=== PATIENT | female | born 1995 | race Caucasian/White ===

== ENCOUNTER 2021-05-09 13:24 | Emergency (ER) | payer MEDICAID ==
[2021-05-09] MEDS ORDERED: DEXAMETHASONE 10 MG/ML VIAL PO STA (13:43)
[2021-05-09] MEDS ORDERED: CHERRY SYRUP 10 ML UDC PO ONE (13:43)
[2021-05-09] MEDS ORDERED: IPRATROPIUM/ALBUTEROL 3 ML NEB INH STA (13:43)
--- NOTE | 2021-05-09 13:45 | ED Physician Documentation ---
PD HPI DYSPNEA - Stated complaint Stated Complaint: ASTHMA,SOA - Chief complaint Chief Complaint: Resp - History obtained from History obtained from: Patient, Family - History of Present Illness Timing - onset: How many days ago (2) Timing - onset during: Rest Timing - duration: Days (2) Timing - details: Gradual onset, Still present Inciting event(s): Out of meds, URI Improved by: Inhaler/neb Worsened by: Exertion, Coughing Associated symptoms: Cough, Wheezing. No: Fever Similar symptoms before: Diagnosis (asthma) Recently seen: Not recently seen - Additional information Additional information: 25-year-old autistic female has developed a cough and congestion with shortness of breath. She has a history of asthma and she has been having issues with shortness of breath for about 2 days. She is run out of her inhaler. She has not had to use her inhaler for quite some time. She did get her first Covid shot 1 week ago due to get her second on holding. She stays mostly at home her parents are immunized. Review of Systems Constitutional: denies: Fever Eyes: denies: Decreased vision Ears: denies: Ear pain Nose: reports: Rhinorrhea / runny nose, Congestion Throat: denies: Sore throat Cardiac: denies: Chest pain / pressure, Palpitations, Pedal edema, Calf pain Respiratory: reports: Dyspnea, Cough, Wheezing GI: denies: Abdominal Pain, Nausea, Vomiting, Constipation, Diarrhea : denies: Dysuria, Frequency PD PAST MEDICAL HISTORY - Present Medications Home Medications: Ambulatory Orders Medication Instructions Recorded Confirmed Albuterol Sulf [Ventolin Hfa 1 - 2 puffs INH Q4HR PRN #1 inhaler 05/09/21 Inhaler] Albuterol Sulfate [Proair Hfa 1 - 2 puffs INH Q4H PRN 05/09/21 05/09/21 Inhaler] Amox/Clav 875/125 [Augmentin] 1 each PO Q12H #20 tablet 05/09/21 predniSONE [Deltasone] 40 mg PO DAILY 5 Days #10 tablet 05/09/21 - Allergies Allergies/Adverse Reactions: Allergies Allergy/AdvReac Type Severity Reaction Status Date / Time No Known Drug Allergies Allergy Verified 05/09/21 13:27 PD ED PE NORMAL - Vitals Vital signs reviewed: Yes (Hypertensive) - General General: Well developed/nourished, Other (Tachypneic at rest with audible wheeze) - HEENT HEENT: Atraumatic, PERRL, EOMI, Other (Right TM is erythematous with no recognizable landmarks there does appear to be pus in the canal. 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, No motor deficit, No sensory deficit, Normal speech Eye Opening: Spontaneous Motor: Obeys Commands Verbal: Oriented GCS Score: 15 - Psych Psych: Normal mood, Normal affect Results - Vitals Vitals: Vital Signs - 24 hr 05/09/21 05/09/21 05/09/21 13:28 13:38 13:47 Temperature 36.3 C L Heart Rate 86 93 85 Respiratory 22 18 16 Rate Blood Pressure 147/89 H 144/89 H O2 Saturation 93 94 05/09/21 05/09/21 05/09/21 14:02 14:04 15:04 Temperature 36.6 C Heart Rate 96 94 95 Respiratory 14 16 18 Rate Blood Pressure 147/90 H 114/92 H O2 Saturation 100 96 Oxygen O2 Source Room air - Labs Labs: Laboratory Tests 05/09/21 14:04 Nasal Adenovirus (PCR) NOT DETECTED Nasal B. parapertussis DNA (PCR) NOT DETECTED Nasal Coronavir 229E PCR NOT DETECTED Nasal Coronavir HKU1 PCR NOT DETECTED Nasal Coronavir NL63 PCR NOT DETECTED Nasal Coronavir OC43 PCR NOT DETECTED Nasal Enterovir/Rhinovir PCR NOT DETECTED Nasal Influenza B PCR NOT DETECTED Nasal Influenza A PCR NOT DETECTED Nasal Parainfluen 1 PCR NOT DETECTED Nasal Parainfluen 2 PCR NOT DETECTED Nasal Parainfluen 3 PCR NOT DETECTED Nasal Parainfluen 4 PCR NOT DETECTED Nasal RSV (PCR) NOT DETECTED Nasal B.pertussis DNA PCR NOT DETECTED Nasal C.pneumoniae (PCR) NOT DETECTED Rajeev Human Metapneumo PCR NOT DETECTED Nasal M.pneumoniae (PCR) NOT DETECTED Nasal SARS-CoV-2 (PCR) NOT DETECTED - Rads (name of study) chest Radiology: Prelim report reviewed (Impression: No acute cardiopulmonary abnormality), EMP read indepedently, See rad report PD MEDICAL DECISION MAKING - ED course Complexity details: reviewed old records, reviewed results, re-evaluated patient, considered differential, d/w patient, d/w family ED course: 25-year-old autistic female presents to the emergency department with wheezing having run out of her inhaler. On examination she does have otitis on the right side. She has tight wheezing she is administered dexamethasone 10 mg orally and a DuoNeb treatment is administered with resolution of the audible wheezes she does have persistent wheezes and a second treatment with plain albuterol is administered as well. Chest x-ray read as without evidence of infiltrate. She is swabbed for Covid. Departure - Departure Disposition: Home, Self Care Clinical Impression: Asthma exacerbation Qualifiers: Asthma severity: mild Asthma persistence: intermittent Qualified Code(s): J45.21 - Mild intermittent asthma with (acute) exacerbation Otitis media Qualifiers: Otitis media type: suppurative Chronicity: acute Laterality: right Recurrence: recurrent Spontaneous tympanic membrane rupture: without spontaneous rupture Qualified Code(s): H66.004 - Acute suppurative otitis media without spontaneous rupture of ear drum, recurrent, right ear Condition: Stable Instructions: ED Reactive Airway Disease, ED Otitis Media Acute Adult Follow-Up: [facility] [Provider Group] Prescriptions: Albuterol Sulf [Ventolin Hfa Inhaler] 1 - 2 puffs INH Q4HR PRN #1 inhaler PRN Reason: Shortness Of Air/Wheezing Amox/Clav 875/125 [Augmentin] 1 each PO Q12H #20 tablet predniSONE [Deltasone] 40 mg PO DAILY 5 Days #10 tablet Discharge Date/Time: 05/09/21 15:07
--- NOTE | 2021-05-09 14:00 | XRAY Report ---
PROCEDURE: Chest 1 View X-Ray INDICATIONS: soa COMMENTS: SOA/ PT STATES A HSITORY OF ASTHMA PRIORS: NONE TECHNIQUE: One view of the chest was acquired. COMPARISON: None FINDINGS: Surgical changes and devices: None. Lungs and pleura: No pleural effusions or pneumothorax. Lungs are clear. Mediastinum: Mediastinal contours appear normal. Heart size is normal. Bones and chest wall: No suspicious bony lesions. Overlying soft tissues appear unremarkable. IMPRESSION: No acute cardiopulmonary abnormality Reviewed by: Cristofer Alvarez on 05/09/2021 1:58 PM PDT Approved by: Cristofer Alvarez on 05/09/2021 1:58 PM PDT Station ID: [id number]
[2021-05-09] MEDS ORDERED: ALBUTEROL NEB 2.5 MG/3 ML INH STA (14:04)
[2021-05-09 15:06] VITALS: BP 114/92
[2021-05-09 15:30] LABS: B. PARAPERTUSSIS- RESP PCR PAN NOT DETECTED; B. PERTUSSIS- RESP PCR PANEL NOT DETECTED; C. PNEUMONIAE- RESP PCR PANEL NOT DETECTED; CORONAVIRUS 229E-RESP PCR NOT DETECTED; CORONAVIRUS HKU1-RESP PCR NOT DETECTED; CORONAVIRUS NL63-RESP PCR NOT DETECTED; CORONAVIRUS OC43-RESP PCR NOT DETECTED; HUMAN METAPNEUMOVIRUS NOT DETECTED; INFLUENZA A- RESP PCR PANEL NOT DETECTED; INFLUENZA B - RESP PCR PANEL NOT DETECTED; M. PNEUMONIAE- RESP PCR PANEL NOT DETECTED; PARAINFLUENZA VIRUS 1 NOT DETECTED; PARAINFLUENZA VIRUS 2 NOT DETECTED; PARAINFLUENZA VIRUS 3 NOT DETECTED; PARAINFLUENZA VIRUS 4 NOT DETECTED; RHINOVIRUS/ENTEROVIRUS NOT DETECTED; RSV- RESP PCR PANEL NOT DETECTED; SARS-CoV-2 -RESP PCR PANEL NOT DETECTED
== END 2021-05-09 15:07 | disposition home or self-care (01) ==
LOC: ED 13:24
DX: J45.21 Mild intermittent asthma with (acute) exacerbation (principal); H66.004 Acute suppurative otitis media without spontaneous rupture of ear drum, recurrent, right ear; Z20.822 Contact with and (suspected) exposure to COVID-19; F84.0 Autistic disorder
CPT/HCPCS: 0202U; 71045; 94640; 94664; 99284; A9270